=== PATIENT | female | born 1960 | race American Indian/Alaskan Native ===

== ENCOUNTER 2021-09-08 06:02 | Observation (INO) | payer SELFPAY ==
[2021-09-08 07:11] LABS: Hematocrit 36.2 % (30.3-42.9); Hemoglobin 12.3 gm/dl (10.1-14.3); Mean Corpuscular HGB Conc 34 % (30-34); Mean Corpuscular Volume 92 fl (79-97); Platelet Count 138 K/mm3 (140-440); Red Blood Count 3.94 M/mm3 (3.65-5.03); Red Cell Distribution Width 15.7 % (13.2-15.2)
[2021-09-08 07:32] LABS: Albumin 4.2 g/dL (3.9-5); Calcium 10.2 mg/dL (8.4-10.2)
[2021-09-08 08:00] LABS: Basophils % (Manual) 0 % (0.0-1.8); Total Cells Counted 100
[2021-09-08 08:01] LABS: Platelet Estimate Consistent w Auto; RBC Morphology Normal
--- NOTE | 2021-09-08 11:07 | Emergency Department Report ---
HPI - General Chief Complaint: High BP Time Seen by Provider: 09/08/21 10:51 - HPI HPI: Room 7 The patient is a 60-year-old female present with chief complaint of needs dialysis. Patient has a history end-stage renal disease and receives dialysis every Friday. Patient states she was last dialyzed 2 days ago 09/06/2021. The patient states 3 days ago she developed a fever and cough and took a home COVID test which came back positive. The patient states she went to her normal dialysis center today for her scheduled dialysis but when she informed them she was COVID-positive she was instructed to come to the emergency department and that she cannot be dialyzed there. Patient denies shortness of breath. Patient states her cough has been occasionally productive. ED Past Medical Hx - Past Medical History Hx Hypertension: Yes Hx Renal Disease: Yes (ESRD) - Surgical History Hx Appendectomy: Yes Additional Surgical History: Left upper extremity fistula, - Family History Family history: no significant - Social History Smoking Status: Never Smoker Substance Use Type: None ED Review of Systems ROS: Stated complaint: NEED DIALYSIS/COVID + Other details as noted in HPI Constitutional: fever Eyes: denies: eye pain ENT: denies: throat pain Respiratory: cough. denies: shortness of breath Cardiovascular: denies: chest pain Endocrine: no symptoms reported Gastrointestinal: denies: abdominal pain Genitourinary: denies: abnormal menses Musculoskeletal: denies: back pain Neurological: denies: headache Physical Exam - Physical Exam Vital Signs: Vital Signs 09/08/21 06:34 Temperature 98.3 F Pulse Rate 70 Respiratory 18 Rate Blood Pressure 155/78 O2 Sat by Pulse 96 Oximetry Physical Exam: GENERAL: The patient is well-developed well-nourished female lying on stretcher not appearing to be in acute distress. [] HEENT: Normocephalic. Atraumatic. Extraocular motions are intact. Patient has moist mucous membranes. NECK: Supple. Trachea midline CHEST/LUNGS: Clear to auscultation. There is no respiratory distress noted. HEART/CARDIOVASCULAR: Regular. There is no tachycardia. There is no gallop rub or murmur. ABDOMEN: Abdomen is soft, nontender. Patient has normal bowel sounds. There is no abdominal distention. SKIN: There is no rash. There is no diaphoresis. NEURO: The patient is awake, alert, and oriented. The patient is cooperative. The patient has no focal neurologic deficits. The patient has normal speech. GCS 15 MUSCULOSKELETAL: There is no evidence of acute injury. ED Course Vital Signs 09/08/21 06:34 Temperature 98.3 F Pulse Rate 70 Respiratory 18 Rate Blood Pressure 155/78 O2 Sat by Pulse 96 Oximetry - Consultations Consultation #1: 09/08/21 11:05 Nephrology paged 09/08/21 11:[address] Tim-will arrange hemodialysis ED Medical Decision Making - Lab Data Result diagrams: 09/08/21 06:55 09/08/21 06:55 Laboratory Tests 09/08/21 09/08/21 06:55 06:55 WBC 4.0 L RBC 3.94 Hgb 12.3 Hct 36.2 MCV 92 MCH 31 MCHC 34 RDW 15.7 H Plt Count 138 L [place] % (Auto) Tailor Garment Fitter Add Manual Diff Complete Total Counted 100 Seg Neuts % (Manual) 73.0 H Band Neutrophils % 0 Lymphocytes % (Manual) 12.0 L Reactive Lymphs % (Man) 0 Monocytes % (Manual) 13.0 H Eosinophils % (Manual) 2.0 Basophils % (Manual) 0 Metamyelocytes % 0 Myelocytes % 0 Promyelocytes % 0 Blast Cells % 0 Nucleated RBC % Not Reportable Seg Neutrophils # Man 2.9 Band Neutrophils # 0.0 Lymphocytes # (Manual) 0.5 L Abs React Lymphs (Man) 0.0 Monocytes # (Manual) 0.5 Eosinophils # (Manual) 0.1 Basophils # (Manual) 0.0 Metamyelocytes # 0.0 Myelocytes # 0.0 Promyelocytes # 0.0 Blast Cells # 0.0 WBC Morphology Not Reportable Hypersegmented Neuts Not Reportable Hyposegmented Neuts Not Reportable Hypogranular Neuts Not Reportable Smudge Cells Not Reportable Toxic Granulation Not Reportable Toxic Vacuolation Not Reportable Dohle Bodies Not Reportable Pelger-Huet Anomaly Not Reportable Jillian Rods Not Reportable Platelet Estimate Consistent w auto Clumped Platelets Not Reportable Plt Clumps, EDTA Not Reportable Large Platelets Not Reportable Giant Platelets Not Reportable Platelet Satelliting Not Reportable Plt Morphology Comment Not Reportable RBC Morphology Normal Dimorphic RBCs Not Reportable Polychromasia Not Reportable Hypochromasia Not Reportable Poikilocytosis Not Reportable Anisocytosis Not Reportable Microcytosis Not Reportable Macrocytosis Not Reportable Spherocytes Not Reportable Pappenheimer Bodies Not Reportable Sickle Cells Not Reportable Target Cells Not Reportable Tear Drop Cells Not Reportable Ovalocytes Not Reportable Helmet Cells Not Reportable [place] Bodies Not Reportable [place] Rings Not Reportable [place] Cells Not Reportable Bite Cells Not Reportable Crenated Cell Not Reportable Elliptocytes Not Reportable Acanthocytes (Spur) Not Reportable Rouleaux Not Reportable Hemoglobin C Crystals Not Reportable Schistocytes Not Reportable Malaria parasites Not Reportable Isaac Bodies Not Reportable Hem Pathologist Commnt No Sodium 139 Potassium 5.1 H Chloride 92.2 L Carbon Dioxide 27 Anion Gap 25 BUN 66 H Creatinine 11.1 H Estimated GFR 4 BUN/Creatinine Ratio 6 Glucose 112 H Calcium 10.2 Total Bilirubin 0.40 AST 13 ALT 10 Alkaline Phosphatase 82 Total Protein 8.0 Albumin 4.2 Albumin/Globulin Ratio 1.1 - Differential Diagnosis ESRD needing dialysis Critical care attestation.: If time is entered above; I have spent that time in minutes in the direct care of this critically ill patient, excluding procedure time. ED Disposition Clinical Impression: ESRD needing dialysis, Positive self-administered antigen test for COVID-19 Disposition: ADMITTED INPATIENT Is pt being admited?: Yes Does the pt Need Aspirin: No Condition: Fair Time of Disposition: 11:11 (Care transferred to hospitalist (Dr. Bonilla))
--- NOTE | 2021-09-08 11:16 | Consultation ---
History of Present Illness - Reason for Consult Consult date: 09/08/21 end stage renal disease - History of Present Illness The patient is a 60 year old female was admitted to receive HD, she is on dialysis every TTS but could not melo her tx today in her clinic because she was tested positive for COVID-19. She c/o fever and shortness of breath. Renal consult was requested for HD management Past History Past Medical History: ESRD, hypertension Medications and Allergies Allergies Allergy/AdvReac Type Severity Reaction Status Date / Time Sulfa (Sulfonamide Allergy Unknown Verified 09/08/21 06:42 Antibiotics) Review of Systems All systems: negative (fever, SOB) Exam - Vital Signs Vital signs: Vital Signs Temp Pulse Resp BP Pulse Ox 98.3 F 70 18 155/78 96 09/08/21 06:34 09/08/21 06:34 09/08/21 06:34 09/08/21 06:34 09/08/21 06:34 Results - Lab Results 09/08/21 06:55 09/08/21 06:55 Most recent lab results Calcium 10.2 mg/dL (8.4-10.2) 09/08/21 06:55 Assessment and Plan ESRD on HD Shortness of breath HTN COVID-19 infection Pt is agreeable with HD while inpatient HD today for clearance and volume removal will assess dialysis needs daily no indication for ALINA renally dose meds
[2021-09-08 14:25] LABS: Hepatitis B Surface Antigen Non-Reactive (Negative); Hepatitis C Virus Antibody Non-Reactive (NonReactive)
--- NOTE | 2021-09-08 16:02 | History and Physical Report ---
History of Present Illness Date of examination: 09/08/21 Date of admission: 09/08/2021 Chief complaint: Fever for 2 days and COVID-positive History of present illness: 60-year-old female with history of end-stage renal disease and hypertension comes in for COVID positive test patient was dialyzed 2 days ago on 09/06/2021. She developed fever and cough and took a home COVID test which came back positive. She went to her normal dialysis center today and patient was asked to go to the emergency room because she was COVID-positive. No shortness of breath. - Past Medical History --Hypertension: Yes --Renal Disease: Yes (ESRD) - Surgical History --Appendectomy: Yes --Left upper extremity fistula, - Family History --:no significant family history - Social History Smoking Status: Never Smoker Substance Use Type: None Review of Systems ROS: Stated complaint: NEED DIALYSIS/COVID + Other details as noted in HPI Constitutional: fever Eyes: denies: eye pain ENT: denies: throat pain Respiratory: cough. denies: shortness of breath Cardiovascular: denies: chest pain Endocrine: no symptoms reported Gastrointestinal: denies: abdominal pain Genitourinary: denies: abnormal menses Musculoskeletal: denies: back pain Neurological: denies: headache Past History Past Medical History: ESRD, hypertension Medications and Allergies Allergies Allergy/AdvReac Type Severity Reaction Status Date / Time Sulfa (Sulfonamide Allergy Unknown Verified 09/08/21 06:42 Antibiotics) Exam - Constitutional Vitals: Temp Pulse Resp BP Pulse Ox 98.3 F 76 21 161/88 97 09/08/21 06:34 09/08/21 15:00 09/08/21 15:00 09/08/21 15:00 09/08/21 15:00 General appearance: Present: no acute distress, well-nourished - EENT Eyes: Present: PERRL ENT: hearing intact, clear oral mucosa - Neck Neck: Present: supple, normal ROM - Respiratory Respiratory effort: normal Respiratory: bilateral: CTA - Cardiovascular Heart rate: 78 Rhythm: regular Heart Sounds: Present: S1 & S2. Absent: rub, click - Extremities Extremities: pulses symmetrical, No edema Peripheral Pulses: within normal limits - Abdominal General gastrointestinal: Present: soft, non-tender, non-distended, normal bowel sounds Female genitourinary: Present: normal - Integumentary Integumentary: Present: clear, warm, dry - Musculoskeletal Musculoskeletal: gait normal, strength equal bilaterally - Psychiatric Psychiatric: appropriate mood/affect, intact judgment & insight - Neurologic Neurologic: CNII-XII intact, moves all extremities Results - Labs CBC & Chem 7: 09/08/21 06:55 09/08/21 06:55 Labs: Laboratory Last Values WBC 4.0 K/mm3 (4.5-11.0) L 09/08/21 06:55 RBC 3.94 M/mm3 (3.65-5.03) 09/08/21 06:55 Hgb 12.3 gm/dl (10.1-14.3) 09/08/21 06:55 Hct 36.2 % (30.3-42.9) 09/08/21 06:55 MCV 92 fl (79-97) 09/08/21 06:55 MCH 31 pg (28-32) 09/08/21 06:55 MCHC 34 % (30-34) 09/08/21 06:55 RDW 15.7 % (13.2-15.2) H 09/08/21 06:55 Plt Count 138 K/mm3 (140-440) L 09/08/21 06:55 [place] % (Auto) Employee Relations Representative 09/08/21 06:55 Add Manual Diff Complete 09/08/21 06:55 Total Counted 100 09/08/21 06:55 Seg Neuts % (Manual) 73.0 % (40.0-70.0) H 09/08/21 06:55 Band Neutrophils % 0 % 09/08/21 06:55 Lymphocytes % (Manual) 12.0 % (13.4-35.0) L 09/08/21 06:55 Reactive Lymphs % (Man) 0 % 09/08/21 06:55 Monocytes % (Manual) 13.0 % (0.0-7.3) H 09/08/21 06:55 Eosinophils % (Manual) 2.0 % (0.0-4.3) 09/08/21 06:55 Basophils % (Manual) 0 % (0.0-1.8) 09/08/21 06:55 Metamyelocytes % 0 % 09/08/21 06:55 Myelocytes % 0 % 09/08/21 06:55 Promyelocytes % 0 % 09/08/21 06:55 Blast Cells % 0 % 09/08/21 06:55 Nucleated RBC % Not Reportable 09/08/21 06:55 Seg Neutrophils # Man 2.9 K/mm3 (1.8-7.7) 09/08/21 06:55 Band Neutrophils # 0.0 K/mm3 09/08/21 06:55 Lymphocytes # (Manual) 0.5 K/mm3 (1.2-5.4) L 09/08/21 06:55 Abs React Lymphs (Man) 0.0 K/mm3 09/08/21 06:55 Monocytes # (Manual) 0.5 K/mm3 (0.0-0.8) 09/08/21 06:55 Eosinophils # (Manual) 0.1 K/mm3 (0.0-0.4) 09/08/21 06:55 Basophils # (Manual) 0.0 K/mm3 (0.0-0.1) 09/08/21 06:55 Metamyelocytes # 0.0 K/mm3 09/08/21 06:55 Myelocytes # 0.0 K/mm3 09/08/21 06:55 Promyelocytes # 0.0 K/mm3 09/08/21 06:55 Blast Cells # 0.0 K/mm3 09/08/21 06:55 WBC Morphology Not Reportable 09/08/21 06:55 Hypersegmented Neuts Not Reportable 09/08/21 06:55 Hyposegmented Neuts Not Reportable 09/08/21 06:55 Hypogranular Neuts Not Reportable 09/08/21 06:55 Smudge Cells Not Reportable 09/08/21 06:55 Toxic Granulation Not Reportable 09/08/21 06:55 Toxic Vacuolation Not Reportable 09/08/21 06:55 Dohle Bodies Not Reportable 09/08/21 06:55 Pelger-Huet Anomaly Not Reportable 09/08/21 06:55 Jillian Rods Not Reportable 09/08/21 06:55 Platelet Estimate Consistent w auto 09/08/21 06:55 Clumped Platelets Not Reportable 09/08/21 06:55 Plt Clumps, EDTA Not Reportable 09/08/21 06:55 Large Platelets Not Reportable 09/08/21 06:55 Giant Platelets Not Reportable 09/08/21 06:55 Platelet Satelliting Not Reportable 09/08/21 06:55 Plt Morphology Comment Not Reportable 09/08/21 06:55 RBC Morphology Normal 09/08/21 06:55 Dimorphic RBCs Not Reportable 09/08/21 06:55 Polychromasia Not Reportable 09/08/21 06:55 Hypochromasia Not Reportable 09/08/21 06:55 Poikilocytosis Not Reportable 09/08/21 06:55 Anisocytosis Not Reportable 09/08/21 06:55 Microcytosis Not Reportable 09/08/21 06:55 Macrocytosis Not Reportable 09/08/21 06:55 Spherocytes Not Reportable 09/08/21 06:55 Pappenheimer Bodies Not Reportable 09/08/21 06:55 Sickle Cells Not Reportable 09/08/21 06:55 Target Cells Not Reportable 09/08/21 06:55 Tear Drop Cells Not Reportable 09/08/21 06:55 Ovalocytes Not Reportable 09/08/21 06:55 Helmet Cells Not Reportable 09/08/21 06:55 Stanton-[place] Bodies Not Reportable 09/08/21 06:55 Murphy Rings Not Reportable 09/08/21 06:55 Zev Cells Not Reportable 09/08/21 06:55 Bite Cells Not Reportable 09/08/21 06:55 Crenated Cell Not Reportable 09/08/21 06:55 Elliptocytes Not Reportable 09/08/21 06:55 Acanthocytes (Spur) Not Reportable 09/08/21 06:55 Rouleaux Not Reportable 09/08/21 06:55 Hemoglobin C Crystals Not Reportable 09/08/21 06:55 Schistocytes Not Reportable 09/08/21 06:55 Malaria parasites Not Reportable 09/08/21 06:55 Isaac Bodies Not Reportable 09/08/21 06:55 Hem Pathologist Commnt No 09/08/21 06:55 Sodium 139 mmol/L (137-145) 09/08/21 06:55 Potassium 5.1 mmol/L (3.6-5.0) H 09/08/21 06:55 Chloride 92.2 mmol/L (98-107) L 09/08/21 06:55 Carbon Dioxide 27 mmol/L (22-30) 09/08/21 06:55 Anion Gap 25 mmol/L 09/08/21 06:55 BUN 66 mg/dL (7-17) H 09/08/21 06:55 Creatinine 11.1 mg/dL (0.6-1.2) H 09/08/21 06:55 Estimated GFR 4 ml/min 09/08/21 06:55 BUN/Creatinine Ratio 6 % 09/08/21 06:55 Glucose 112 mg/dL (65-100) H 09/08/21 06:55 Calcium 10.2 mg/dL (8.4-10.2) 09/08/21 06:55 Total Bilirubin 0.40 mg/dL (0.1-1.2) 09/08/21 06:55 AST 13 units/L (5-40) 09/08/21 06:55 ALT 10 units/L (7-56) 09/08/21 06:55 Alkaline Phosphatase 82 units/L (35-129) 09/08/21 06:55 Total Protein 8.0 g/dL (6.3-8.2) 09/08/21 06:55 Albumin 4.2 g/dL (3.9-5) 09/08/21 06:55 Albumin/Globulin Ratio 1.1 % 09/08/21 06:55 Hepatitis A IgM Ab Non-reactive (NonReactive) 09/08/21 11:23 Hep Bs Antigen Non-reactive (Negative) 09/08/21 11:23 Hep B Core IgM Ab Non-reactive (NonReactive) 09/08/21 11:23 Hepatitis C Antibody Non-reactive (NonReactive) 09/08/21 11:23 Short CBC 09/08/21 Range/Units 06:55 WBC 4.0 L (4.5-11.0) K/mm3 Hgb 12.3 (10.1-14.3) gm/dl Hct 36.2 (30.3-42.9) % Plt Count 138 L (140-440) K/mm3 BMP 09/08/21 06:55 Sodium 139 Potassium 5.1 H Chloride 92.2 L Carbon Dioxide 27 BUN 66 H Creatinine 11.1 H Glucose 112 H Calcium 10.2 Liver Function 09/08/21 Range/Units 06:55 Total Bilirubin 0.40 (0.1-1.2) mg/dL AST 13 (5-40) units/L ALT 10 (7-56) units/L Alkaline Phosphatase 82 (35-129) units/L Albumin 4.2 (3.9-5) g/dL Assessment and Plan Advance Directives: Yes (Full code) VTE prophylaxis?: Chemical Plan of care discussed with patient/family: Yes - Patient Problems (1) Hyperkalemia Current Visit: Yes Status: Acute Plan to address problem: Patient to get hemodialysis Potassium5.1 which is not that high (2) Positive self-administered antigen test for COVID-19 Current Visit: No Status: Acute Plan to address problem: Patient is not hypoxic. Patient to be discharged after hemodialysis on Paxlovid. (3) ESRD needing dialysis Current Visit: No Status: Chronic Plan to address problem: Nephrology consulted Patient to get emergent hemodialysis (4) Hypertension Current Visit: Yes Status: Chronic Qualifiers: Hypertension type: primary hypertension Qualified Code(s): I10 - Essential (primary) hypertension Plan to address problem: Continue antihypertensives (5) DVT prophylaxis Current Visit: Yes Status: Acute Plan to address problem: On anticoagulation and GI prophylaxis (6) Advance care planning Current Visit: Yes Status: Acute Plan to address problem: Diagnosis discussed, prognosis discussed and care plan discussed. Patient acknowledges care plan. Care plan +30 minutes
[2021-09-08] MEDS ORDERED: ONDANSETRON 4 MG/2 ML INJ IV PRN (16:10)
[2021-09-08] MEDS ORDERED: ACETAMINOPHEN 325 MG TAB PO PRN (16:10)
[2021-09-08] MEDS ORDERED: oxyCODONE /ACETAMINOPHEN 5-325MG TAB PO PRN (16:16)
[2021-09-08] MEDS ORDERED: MORPHINE 2 MG/1 ML INJ IV PRN (16:16)
[2021-09-08] MEDS ORDERED: METOCLOPRAMIDE 10 MG/2 ML INJ IV PRN (16:16)
--- NOTE | 2021-09-08 20:39 | Discharge Summary ---
Providers - Providers Date of Admission: 09/08/21 18:34 Date of discharge: 09/08/21 Attending physician: KELLY NOEL 09/08/21 11:08 Consult to Physician [CONS] Stat Comment: Consulting Provider: JENN GUNN Physician Instructions: Reason For Exam: ESRD needing hemodialysis Primary care physician: WINNIE CRESPO Hospitalization Condition: Fair Hospital course: 60-year-old female with history of end-stage renal disease and hypertension comes in for COVID positive test patient was dialyzed 2 days ago on 09/06/2021. She developed fever and cough and took a home COVID test which came back positive. She went to her normal dialysis center today and patient was asked to go to the emergency room because she was COVID-positive. No shortness of breath. Assessment and Plan Advance Directives: Yes (Full code) VTE prophylaxis?: Chemical Plan of care discussed with patient/family: Yes - Patient Problems (1) Hyperkalemia Current Visit: Yes Status: Acute Plan to address problem: Patient had emergent hemodialysis Potassium corrected (2) Positive self-administered antigen test for COVID-19 Current Visit: No Status: Acute Plan to address problem: Patient is not hypoxic. Patient to be discharged after hemodialysis on Paxlovid. (3) ESRD needing dialysis Current Visit: No Status: Chronic Plan to address problem: Nephrology consulted Patient got emergent hemodialysis (4) Hypertension Current Visit: Yes Status: Chronic Qualifiers: Hypertension type: primary hypertension Qualified Code(s): I10 - Essential (primary) hypertension Plan to address problem: Continue antihypertensives (5) DVT prophylaxis Current Visit: Yes Status: Acute Plan to address problem: On anticoagulation and GI prophylaxis (6) Advance care planning Current Visit: Yes Status: Acute Plan to address problem: Diagnosis discussed, prognosis discussed and care plan discussed. Patient acknowledges care plan. Care plan +30 minutes Disposition: 01 HOME / SELF CARE / HOMELESS Final Discharge Diagnosis (Prints w/discharge instructions): Hyperkalemia. End- stage renal disease needing dialysis. COVID-positive test. Hypertension Time spent for discharge: 35 minutes - Discharge Diagnoses (1) Hyperkalemia Status: Acute (2) Positive self-administered antigen test for COVID-19 Status: Acute (3) ESRD needing dialysis Status: Chronic (4) Hypertension Status: Chronic Qualifiers: Hypertension type: primary hypertension Qualified Code(s): I10 - Essential (primary) hypertension (5) DVT prophylaxis Status: Acute (6) Advance care planning Status: Acute Core Measure Documentation - Palliative Care Palliative Care/ Comfort Measures: Not Applicable - Core Measures Any of the following diagnoses?: none Exam - Constitutional Vitals: Temp Pulse Resp BP Pulse Ox 98.9 F 80 20 155/91 97 09/08/21 18:50 09/08/21 20:30 09/08/21 18:50 09/08/21 20:30 09/08/21 18:50 General appearance: Present: no acute distress, well-nourished - EENT Eyes: Present: PERRL ENT: hearing intact, clear oral mucosa - Neck Neck: Present: supple, normal ROM - Respiratory Respiratory effort: normal Respiratory: bilateral: CTA - Cardiovascular Rhythm: regular Heart Sounds: Present: S1 & S2. Absent: rub, click - Extremities Extremities: pulses symmetrical, No edema Peripheral Pulses: within normal limits - Abdominal General gastrointestinal: Present: soft, non-tender, non-distended, normal bowel sounds Female genitourinary: Present: normal - Integumentary Integumentary: Present: clear, warm, dry - Musculoskeletal Musculoskeletal: gait normal, strength equal bilaterally - Psychiatric Psychiatric: appropriate mood/affect, intact judgment & insight - Neurologic Neurologic: CNII-XII intact, moves all extremities Plan Activity: no restrictions Diet: renal Plan of Treatment: Paxlovid 3 caps bid X 5 days Follow up with: WINNIE CRESPO MD [Primary Care Provider] - 7 Days
[2021-09-08 21:36] VITALS: BP 155/88
[2021-09-08] MEDS ORDERED: HEPARIN 5,000 UNIT/1 ML VIAL SUB-Q SCH (22:00)
[2021-09-08] MEDS ORDERED: FAMOTIDINE 20 MG TAB PO SCH (22:00)
== END 2021-09-08 21:45 | disposition home or self-care (01) ==
LOC: ED 06:02 → 3A 18:34
PROVIDERS: ADMIT Internal Medicine; ATTEND Internal Medicine
DX: U07.1 COVID-19 (principal); E87.5 Hyperkalemia; I12.0 Hypertensive chronic kidney disease with stage 5 chronic kidney disease or end stage renal disease; N18.6 End stage renal disease; E87.70 Fluid overload, unspecified; R06.02 Shortness of breath; Z99.2 Dependence on renal dialysis; Z90.49 Acquired absence of other specified parts of digestive tract; Z79.899 Other long term (current) drug therapy; Z98.890 Other specified postprocedural states
CPT/HCPCS: 36415; 80053; 80074; 85025; 99284; G0257; G0378; 85007